=== PATIENT | male | born 1955 | race Caucasian/White ===

== ENCOUNTER 2020-12-05 11:11 | Emergency (ER) | payer OTHER ==
[~2020-12-05] VITALS: Ht 188 cm; Wt 104.0 kg
[~2020-12-05 11:11] MED LIST: CLOT15CR23 TP
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
[2020-12-05] MEDS ORDERED: MORPHINE SULFATE 4 MG/ML INJ. IVP ONE (13:30)
[2020-12-05 16:03] VITALS: BP 155/80
== END 2020-12-05 16:44 | disposition short-term general hospital (02) ==
LOC: ER 11:11
DX: S02.40DA Maxillary fracture, left side, initial encounter for closed fracture (principal); S02.842A Fracture of lateral orbital wall, left side, initial encounter for closed fracture; R07.89 Other chest pain; M54.2 Cervicalgia; R51.9 Headache, unspecified; Z59.00 Homelessness unspecified; F31.9 Bipolar disorder, unspecified; F17.200 Nicotine dependence, unspecified, uncomplicated; Z20.822 Contact with and (suspected) exposure to COVID-19; Z88.8 Allergy status to other drugs, medicaments and biological substances; Y04.2XXA Assault by strike against or bumped into by another person, initial encounter; Y93.89 Activity, other specified; Y92.89 Other specified places as the place of occurrence of the external cause; Y99.8 Other external cause status
CPT/HCPCS: 70450; 71250; 72125; 72131; 87426; 96374; 99285; J2270; U0003; U0005